=== PATIENT | male | born 1975 | race Caucasian/White ===

== ENCOUNTER 2019-09-18 12:21 | Inpatient (IN) ==
--- NOTE | 2019-09-11 14:08 | Anesthesiology Consultation ---
Date of Service September 11, 2019 Assessment & Plan (1) Encounter for pre-operative examination: Chart Review Chart Review: Acceptable Risk for Surgery and Patient NOT seen in Pre Admission Testing History Surgery Operation Date: 09/18/19 07:15 Proposed Procedures p Left Hand Assisted Laparoscopic Nephrectomy - Willem Parker, Height/Weight Height: 5 ft 11 in Weight: 72.575 kg Allergies Allergy/AdvReac Type Severity Reaction Status Date / Time No Known Allergies Allergy Verified 08/29/19 08:54 Medications Home Medications Medication Instructions Recorded Confirmed Last Taken tenofovir alafenamide 25 mg tablet 25 mg PO DAILY 08/28/19 08/29/19 Unknown Past Medical History Medical History (Updated 09/11/19 @ 14:06 by Marcelle Turcios) GERD (gastroesophageal reflux disease) Hepatitis hx hepatitis c per records Left renal mass Past Family History Family History (Updated 08/28/19 @ 11:35 by Nini Dey) Father Prostate cancer Past Surgical History Surgical History (Updated 08/28/19 @ 11:35 by Nini Dey) History of mandibular surgery Social History Smoking Status: Current every day smoker Hx Alcohol Use: No Testing Laboratory Results 08/31/19 WBC 7.84 H/H 15.4/45.1 PLATELETS 226 SODIUM 143 POTASSIUM 3.8 CHLORIDE 104 CO2 25 BUN 17 CREATININE 1.01 GLUCOSE 73 URINE CULTURE no growth UA negative Electrocardiogram Date: 08/30/19 Findings: + NSR @ (80) Chest X-Ray Date: 08/30/19 Findings: + NAD
[~2019-09-18 12:21] MED LIST: CEFAZOLIN 2000MG 2,000 MG/15 ML SYR IV SCH; LR 15ML/HR IV SCH
[2019-09-18] MEDS ORDERED: ONDANSETRON INJ 2 MG/ML 2 ML VIAL ONE (12:27)
[2019-09-18] MEDS ORDERED: PROPOFOL IV EMULSION 10 MG/ML 20 ML VIAL IV ONE (12:27)
[2019-09-18] MEDS ORDERED: DEXAMETHASONE SOD INJ 4 MG/ML VIAL ONE (12:27)
[2019-09-18] MEDS ORDERED: LIDOCAINE HCL 2% 2 ML VIAL/AMP(20MG/ML) INFIL ONE (12:27)
[2019-09-18] MEDS ORDERED: fentaNYL citrate 100 MCG/2 ML VIAL ONE ×2 (12:27→16:57)
[2019-09-18] MEDS ORDERED: MIDAZOLAM HCL 1 MG/ML 2ML VIAL ONE (12:27)
[2019-09-18] MEDS ORDERED: ROCURONIUM BROMIDE 10 MG/ML 5 ML VIAL ONE (12:30)
[2019-09-18] MEDS ORDERED: BUPIVACAINE 0.5 % 5 MG/1 ML MPF 30ML VIAL ONE (12:50)
--- NOTE | 2019-09-18 13:04 | History & Physical Bridge Note ---
Date of Service September 18, 2019 History & Physical Bridge Note I have examined the patient, reviewed the History & Physical and in the interval since the performance of the History & Physical I have noted the following changes of clinical significance: no changes noted
--- NOTE | 2019-09-18 13:56 | Operative Report ---
PG Post Operative Report Pre & Post Diagnosis Left Renal Mass Same Operation Date: 09/18/19 14:00 <No data on this case meets the specified criteria> I identified the patient and participated in the time-out.: Yes Procedure Laparoscopic Hand Assisted Radical Nephrectomy with lysis of adhesions > 20 minutes Operation Date: 09/18/19 14:00 <No data on this case meets the specified criteria> Surgeon Willem Parker, II, DO Accounts Adjustable Clerk Bren Estimated Blood Loss 50 Findings Consistent with Post-Op Diagnosis Solid renal mass suspicious for malignancy. Significant adhesions with extensive lysis of adhesions greater than 20 minutes. Specimens Radical Kidney Pelvic Lymph Node Left. Drains Owens catheter. Anesthesia Type General Complications none Disposition Disposition: Recovery Room Indications Patient with enhancing left renal mass. Risk and benefits were discussed at length. Patient elected to undergo hand assisted laparoscopic nephrectomy. Description of Procedure The patient was brought to the operative suite and placed under general endotracheal intubation anesthesia in the supine position. The patient was transferred to right side propped with support. The patient was placed into a flex'ed position and then placed into mild reverse Trendelenberg. At this point, the patient prepped and draped in the usual sterile fashion and a timeout was completed. Preoperative antibiotics of Ancef 2 gm had been given. FLORENCE's and SCD's were placed on the patient's lower extremities. A catheter was exchanged using sterile technique. With the time out completed the patient was flexed and the skin was marked. The left lower quadrant was marked lateral to the rectus shealth. The area was anesthetized and an incision was made to the fascial layer. The lateral edge of the rectus sheath was opened and the rectus muscles retracted medially. The posterior sheath/peritoneum was then entered. This was manually probed and no major adhesions or areas of concern were noted. The fascia was further opened and the hand assist gel port was placed. The midline and lateral camera/working port sites were assessed. The port site was anesthetized. A small incision was made into the skin and subcutaneous tissues. A 12 mm camera port was placed. The cavity was insufflated to 15mmHG. A laparoscopic camera was placed and the abdominal cavity inspected. No concerning features were noted. The second 12 mm port was then placed in a similar fashion. LUIGI Correia was integral in port placement, camera utilization, and first assisting for the entire remainder of the procedure. She remained in sterile attire and then proceeded to assist the remainder of the case. The kidney mass was notably displacing the liver and severe adhesions were noted throughout the abdomen and especially the sigmoid colon along the left pelvic wall. On assessment, it was somewhat fixed laterally and superiorly. At this point, the white line of Toldt was assessed and opened. The laparoscopic harmonic device and blunt dissection was utilized. The colon was mobilized medially to expose the retroperitoneum and the area assessed. Adhesions were freed to allow mobilization. A severe amount of adhesions were noted from the colon and were freed. Extensive lysis of adhesions were completed. These were dissected with blunt technique. Cautery was used to assist dissection and control bleeding. The retroperitoneal fat was assessed. The ureter and gonadal vein were identified. The ureter was isolated and dissection was taken superiorly. This was followed to the renal pelvis. There was a notable amount of adhesion in the pelvis. These adhesions were dissected and freed. Multiple attempts were made to palpate an enlarged node in the pelvis along the iliac vessels. At no point was an enlarged node palpated. Due to the severity of adhesions, it was decided to not attempt dissection without the ability to palpate a node. The Renal Artery and Vein were then cleaned and exposed. They were individually isolated. The Gonadal vein was found to be directly anterior to the renal artery and due to inflammation proved difficult to dissect away. Due to this, it was clamped and transected. The Endo FLAVIO stapler with a vascular load was selected. This was placed across the renal artery. The stapler was engaged and the artery transected after isolating the artery. The stump was assessed and no major bleeding was noted. The stapler was then placed across the renal vein and this was stapled and transected. The kidney and surrounding area was inspected. No major bleeding or areas of concern. The perinephric tissues posterior, lateral, superior, and inferior were then freed. Significant adhesions were noted laterally and superiorly. The Adrenal gland appeared to be uninvolved in the dissection. No obvious tumor invasion into the spleen was appreciated, however thick adherent tissue was noted between the bulk of the mass and the inferior portion of the spleen and abdominal wall laterally. This dissection was completed bluntly and with the harmonic device. Due to the size of the mass, superiorly the dissection was a slow process. Once fully freed and all accessory vessels and surrounding tissues fulgurated and sealed with the harmonic device, the ureter was dissected inferiorly with the surrounding retroperitoneal tissues. A stapler was used just superior to the crossing of the iliac vessels to staple and transect the ureter and retroperitoneal tissues. The specimen was then fully freed. The wound bed was throughly inspected with care to assess the inferior liver. The area was irrigated. No severe or significant bleeding was noted. The vessel stumps were also inspected. No bleeding or other major areas of concern were discovered. A hemostatic agent was placed under the spleen along the resection bed and on the vessel stumps. This Hemostatic agent was also placed on the vessel stumps. No major bleeding or other issues. The entire dissection space was inspected one final time. No bleeding or injuries or areas of concern were noted. No tumor or other concerning features were noted. At this point, The port sites were all assessed laparoscopically. The port sites were closed with the Osito Hayes device and a 1-0 Vicryl suture. The gel port was removed and the lower quadarant stark-like incision was assessed. The specimen had been removed through the gel port, Once this was removed, it was sent for pathologic analysis. The wound bed was inspected a final time without any major bleeding. Counts were completed and correct x 2. The posterior fascial sheath/peritoneum was closed with a running 1-0 Vicryl suture. A running PDS suture was used to close anterior rectus sheath fascia. The subcutaneous tissues were closed with a running 2-0 Vicryl sture. The skin at each port site and along the lower quadrant incision site was closed with surgical juan pablo. The area was cleaned. The patient was cleaned and bandaged in the lower quadrant. He was moved back into the supine position The patient was further cleaned, aroused from anesthesia, and transferred to the pacu in stable condition having tolerated the procedure well with no complications. Counts were correct x 2 and no issues or complications were appreciated. I was present and participated in all aspects of the procedure. LUIGI Riley was critical in the portions as mentioned above. She was also involved with the closure process including fascial closure. I attest to the content of the Intraoperative Record and any orders documented therein. Any exceptions are noted below.
[2019-09-18] MEDS ORDERED: GLYCOPYRROLATE 0.2 MG/ML VIAL ONE (14:21)
[2019-09-18] MEDS ORDERED: NEOSTIGMINE METHYLSULFATE 5 MG/5 ML SYR ONE (14:21)
[2019-09-18] MEDS ORDERED: PHENYLEPHRINE 100MCG/ML 5ML SYR ONE (14:21)
[2019-09-18] MEDS ORDERED: HYDROmorphone INJ 2 MG/ML SYR/VIAL ONE (14:51)
--- NOTE | 2019-09-18 17:13 | Anesthesiology Progress Note ---
Date of Service September 18, 2019 Anesthesia Post Procedure Vital Signs Vital Signs: Temp Pulse Resp BP Pulse Ox 09/18/19 12:40 36.9 C 80 18 133/75 97 Pain Intensity Right Hip: Pain Intensity: 6 Transfer of Care Handoff Completed per policy Notes Mental Status: alert / awake / arousable and participated in evaluation Patient Amnestic to Procedure: Yes Nausea / Vomiting: adequately controlled Pain: adequately controlled Airway Patency, RR, SpO2: stable & adequate BP & HR: stable & adequate Hydration State: stable & adequate Anesthetic Complications: no major complications apparent and Pt Satisfied with anesthetic care
[2019-09-18] MEDS ORDERED: HYDROmorphone INJ 0.5 MG/0.5 ML SYR ONE (17:17)
[2019-09-18] MEDS ORDERED: HYDROmorphone INJ 2 MG/ML SYR/VIAL IV PRN (17:17)
[2019-09-18 17:22] LABS: Basophils # (auto) 0.03 K/uL (0-0.2); Basophils % (auto) 0.2 %; Eosinophils # (auto) 0.04 K/uL (0-0.5); Eosinophils % (auto) 0.3 %; Hemoglobin 14.8 g/dL (14.0-18.0); Immature Granulocytes # (auto) 0.03 K/uL (0.00-0.02); Immature Granulocytes % (auto) 0.2 %; Lymphocytes # (auto) 0.84 K/uL (1.2-3.4); Lymphocytes % (auto) 6.4 %; Mean Corpuscular Hemoglobin 30.9 pg (25-34); Mean Corpuscular Volume 85.6 fL (80-100); Mean Platelet Volume 9.4 fL (7.4-10.4); Monocytes # (auto) 0.23 K/uL (0.11-0.59); Monocytes % (auto) 1.7 %; Neutrophils # (auto) 11.99 K/uL (1.4-6.5); Neutrophils % (auto) 91.2 %; Platelet Count 188 K/uL (130-400); RDW Coefficient of Variation 12.6 % (11.5-14.5); RDW Standard Deviation 39.6 fL (36.4-46.3); Red Blood Count 4.79 M/uL (4.7-6.1); White Blood Count 13.16 K/uL (4.8-10.8)
[2019-09-18 17:24] LABS: Mean Corpuscular Hgb Conc 36.1 g/dL (32-36)
[2019-09-18 17:39] LABS: BUN Creatinine Ratio 14.7 (10-20); Calcium 8.2 mg/dl (8.5-10.1); Creatinine Clr Calc Pharmacy 94.6 ml/min; Est GFR (Non-African American) 86.3; Potassium 3.9 mmol/L (3.5-5.1)
[2019-09-18] MEDS ORDERED: MoRPHine SULFATE 2 MG/ML CARP IV PRN (17:51)
[2019-09-18] MEDS ORDERED: OXYCODONE HCL IR 5 MG TAB (IMMEDIATE RELEASE) PO PRN (17:51)
[2019-09-18] MEDS ORDERED: ONDANSETRON INJ 2 MG/ML 2 ML VIAL IV PRN (17:51)
[2019-09-18] MEDS: ACETAMINOPHEN 1,000 MG/100 ML VIAL IV SCH (18:20)
[2019-09-18] MEDS: MoRPHine SULFATE 4 MG/ML 1 ML CARP\\VIAL IV PRN (19:24)
[2019-09-18] MEDS: LACTATED RINGER'S 1,000 ML IV SCH (20:37)
[2019-09-18] MEDS: CEFAZOLIN 2000MG 2,000 MG/15 ML SYR IV SCH (21:58)
[2019-09-18] MEDS: OXYCODONE HCL IR 5 MG TAB (IMMEDIATE RELEASE) PO PRN (22:06)
[2019-09-19] MEDS: MoRPHine SULFATE 4 MG/ML 1 ML CARP\\VIAL IV PRN (02:28)
[2019-09-19] MEDS: LACTATED RINGER'S 1,000 ML IV SCH ×3 (03:30→17:43)
[2019-09-19] MEDS: ACETAMINOPHEN 1,000 MG/100 ML VIAL IV SCH ×3 (06:13→21:35)
[2019-09-19] MEDS: CEFAZOLIN 2000MG 2,000 MG/15 ML SYR IV SCH (06:13)
[2019-09-19 07:24] LABS: Basophils # (auto) 0.07 K/uL (0-0.2); Basophils % (auto) 0.6 %; Eosinophils # (auto) 0.01 K/uL (0-0.5); Eosinophils % (auto) 0.1 %; Hematocrit (blood only) 37.4 % (42-52); Hemoglobin 13.4 g/dL (14.0-18.0); Immature Granulocytes # (auto) 0.03 K/uL (0.00-0.02); Immature Granulocytes % (auto) 0.3 %; Lymphocytes # (auto) 1.19 K/uL (1.2-3.4); Mean Corpuscular Hemoglobin 30.5 pg (25-34); Mean Corpuscular Hgb Conc 35.8 g/dL (32-36); Mean Corpuscular Volume 85.2 fL (80-100); Mean Platelet Volume 9.7 fL (7.4-10.4); Monocytes # (auto) 1.01 K/uL (0.11-0.59); Monocytes % (auto) 8.5 %; Neutrophils # (auto) 9.63 K/uL (1.4-6.5); Neutrophils % (auto) 80.5 %; Platelet Count 183 K/uL (130-400); RDW Coefficient of Variation 12.7 % (11.5-14.5); Red Blood Count 4.39 M/uL (4.7-6.1); White Blood Count 11.94 K/uL (4.8-10.8)
[2019-09-19 07:54] LABS: BUN Creatinine Ratio 12.4 (10-20); Calcium 8.3 mg/dl (8.5-10.1); Creatinine Clr Calc Pharmacy 68.8 ml/min; Est GFR (African American) 68.1; Est GFR (Non-African American) 58.7
[2019-09-19] MEDS: HEPARIN SOD 5,000 UNIT/0.5 ML VIAL SQ SCH ×2 (07:57→20:18)
[2019-09-19] MEDS: OXYCODONE HCL IR 5 MG TAB (IMMEDIATE RELEASE) PO PRN ×3 (11:45→20:22)
--- NOTE | 2019-09-19 15:26 | Urology Progress Note ---
Date of Service September 19, 2019 Assessment & Plan (1) Renal mass: POD 1 s/p Hand Asst Radical Left Nephrectomy. Patent pain over midline. Tolerated and controlled. Ambulating. No severe issues. No major changes. Catheter draining well. NO other major changes. Tolerated diet. Will remove catheter today. Will monitor. If doing well, will plan on discharge. Mild LESLIE with decrease in renal function expected after radical nephrectomy secondary to loss of kidney. Continue hydration. Subjective Postop from urologic surgery. Patient has been tolerating well, but is having some pain and discomfort. Incisions have been mild sore. Having some abdominal distension/gas pains. Has tolerated catheter. Has not had severe pain or uncontrollable pain. Patient has been ambulating. Has not had bowel movement or major change. No new nausea or vomiting. Had tolerated anesthesia without major problems Tolerated liquid diet postoperatively. Review of Systems Review of Systems: All systems reviewed & are unremarkable except as noted in HPI & below Physical Exam Physical Exam: General: Alert in no acute distress. HEENT: Normocephalic Atraumatic. Inspection normal. Cranial Nerves 2-12 Grossly intact. Normal inspection of face. Normal inspection of neck. Psychologic: Normal affect. Respiratory: Nonlabored. No use of accessory muscles. No tachypnea or dyspnea. Cardiovascular: No tachycardia Skin: [place] and Dry. No rashes or visible lesions. Extremities/Lymphatics: No edema Abdomen: Appropriately tender. Mild distended. No rebound or guarding. Wound: Clean, dry, covered. Results & Data Vital Signs (Past 12 Hours) Vital Signs Temp Pulse Pulse Resp BP Pulse Ox 09/19/19 07:26 36.8 C 73 16 102/63 95 09/19/19 03:59 36.9 C 80 16 107/63 96 PG Care Time/CCT Total # of Minutes Spent Total Time Spent with Patient: Total time spent is greater than 50% in coordination of care (as documented) at patient's floor/unit and/or counseling patient: Coding Level of Care Code 30846 Subseq Hosp Care Lvl 3 Diagnoses Renal mass N28.89
[2019-09-20] MEDS: OXYCODONE HCL IR 5 MG TAB (IMMEDIATE RELEASE) PO PRN ×4 (01:16→18:20)
[2019-09-20] MEDS: LACTATED RINGER'S 1,000 ML IV SCH ×3 (03:10→22:46)
[2019-09-20] MEDS: ACETAMINOPHEN 1,000 MG/100 ML VIAL IV SCH ×3 (05:47→22:10)
[2019-09-20 06:05] LABS: Basophils # (auto) 0.28 K/uL (0-0.2); Basophils % (auto) 3.4 %; Eosinophils # (auto) 0.11 K/uL (0-0.5); Eosinophils % (auto) 1.3 %; Hematocrit (blood only) 38.2 % (42-52); Hemoglobin 13.5 g/dL (14.0-18.0); Immature Granulocytes # (auto) 0.01 K/uL (0.00-0.02); Immature Granulocytes % (auto) 0.1 %; Lymphocytes # (auto) 2.35 K/uL (1.2-3.4); Lymphocytes % (auto) 28.6 %; Mean Corpuscular Hemoglobin 31.3 pg (25-34); Mean Corpuscular Hgb Conc 35.3 g/dL (32-36); Mean Corpuscular Volume 88.4 fL (80-100); Mean Platelet Volume 9.5 fL (7.4-10.4); Monocytes # (auto) 0.69 K/uL (0.11-0.59); Monocytes % (auto) 8.4 %; Neutrophils # (auto) 4.77 K/uL (1.4-6.5); Neutrophils % (auto) 58.2 %; Platelet Count 161 K/uL (130-400); RDW Standard Deviation 42.4 fL (36.4-46.3); Red Blood Count 4.32 M/uL (4.7-6.1); White Blood Count 8.21 K/uL (4.8-10.8)
[2019-09-20 06:35] LABS: BUN Creatinine Ratio 10.3 (10-20); Calcium 8.7 mg/dl (8.5-10.1); Creatinine Clr Calc Pharmacy 69.8 ml/min; Est GFR (African American) 69.2; Est GFR (Non-African American) 59.7; Potassium 3.9 mmol/L (3.5-5.1)
[2019-09-20] MEDS: HEPARIN SOD 5,000 UNIT/0.5 ML VIAL SQ SCH ×2 (09:37→21:19)
--- NOTE | 2019-09-20 13:13 | Urology Progress Note ---
Date of Service September 20, 2019 Assessment & Plan (1) Renal mass: POD 2 s/p Hand Asst Radical Left Nephrectomy. Patent pain over midline. Tolerated and controlled. Ambulating but limited due to baseline ambulatory issues. Patient does require crutches/walker at present facility has noted increased difficulty secondary to discomfort coming from left groin after hand-assisted nephrectomy.. No severe issues. No major changes. Catheter draining well. NO other major changes. Tolerated diet. Patient has tolerated catheter removal. Is voiding on his own without major issues or concerns Mild LESLIE with decrease in renal function expected after radical nephrectomy secondary to loss of kidney. Continue hydration. We will plan to increase diet. Due to ambulation issues will set up referral for physical therapy. Goal to be evaluated for different mobility assistance devices. Subjective Postop from urologic surgery. Patient has been tolerating well, but is having some pain and discomfort. Incisions have been mild sore. Having some abdominal distension/gas pains. Has tolerated catheter. Has not had severe pain or uncontrollable pain. Patient has been ambulating. Patient has some ambulatory issues at baseline and does walk with crutches and a walker in the present facility. Is having worsening issues with mobilization secondary to discomfort due to recent abdominal surgery Has not had bowel movement or major change. No new nausea or vomiting. Had tolerated anesthesia without major problems Tolerated liquid diet postoperatively. Review of Systems Review of Systems: All systems reviewed & are unremarkable except as noted in HPI & below Physical Exam Physical Exam: General: Alert in no acute distress. HEENT: Normocephalic Atraumatic. Inspection normal. Cranial Nerves 2-12 Grossly intact. Normal inspection of face. Normal inspection of neck. Psychologic: Normal affect. Respiratory: Nonlabored. No use of accessory muscles. No tachypnea or dyspnea. Cardiovascular: No tachycardia Skin: [place] and Dry. No rashes or visible lesions. Extremities/Lymphatics: No edema Abdomen: Appropriately tender. Mild distended. No rebound or guarding. Wound: Clean, dry, covered. Results & Data Vital Signs (Past 12 Hours) Vital Signs Temp Resp BP Pulse Ox 09/20/19 07:35 36.8 C 16 109/68 95 PG Care Time/CCT Total # of Minutes Spent Total Time Spent with Patient: Total time spent is greater than 50% in coordination of care (as documented) at patient's floor/unit and/or counseling patient: Coding Level of Care Code 64341 Subseq Hosp Care Lvl 3 Diagnoses Renal mass N28.89
[2019-09-20] MEDS: MoRPHine SULFATE 4 MG/ML 1 ML CARP\\VIAL IV PRN (21:21)
[2019-09-20] MEDS: SIMETHICONE 80 MG CHEW PO PRN (22:09)
[2019-09-20] MEDS: CALCIUM CARBONATE 500 MG CHEWABLE TAB PO PRN (23:20)
[2019-09-21] MEDS: OXYCODONE HCL IR 5 MG TAB (IMMEDIATE RELEASE) PO PRN ×5 (00:53→18:13)
[2019-09-21] MEDS: ACETAMINOPHEN 1,000 MG/100 ML VIAL IV SCH ×2 (05:55→13:42)
[2019-09-21] MEDS: SIMETHICONE 80 MG CHEW PO PRN ×3 (05:55→22:37)
[2019-09-21 06:55] LABS: Basophils % (auto) 3.1 %; Eosinophils # (auto) 0.21 K/uL (0-0.5); Eosinophils % (auto) 3.2 %; Hematocrit (blood only) 38.4 % (42-52); Hemoglobin 13.3 g/dL (14.0-18.0); Immature Granulocytes # (auto) 0.02 K/uL (0.00-0.02); Immature Granulocytes % (auto) 0.3 %; Lymphocytes # (auto) 1.75 K/uL (1.2-3.4); Mean Corpuscular Hemoglobin 30.3 pg (25-34); Mean Corpuscular Hgb Conc 34.6 g/dL (32-36); Mean Corpuscular Volume 87.5 fL (80-100); Mean Platelet Volume 9.5 fL (7.4-10.4); Monocytes # (auto) 0.46 K/uL (0.11-0.59); Monocytes % (auto) 7.1 %; Neutrophils # (auto) 3.83 K/uL (1.4-6.5); Neutrophils % (auto) 59.3 %; Platelet Count 171 K/uL (130-400); RDW Coefficient of Variation 12.6 % (11.5-14.5); RDW Standard Deviation 40.7 fL (36.4-46.3); Red Blood Count 4.39 M/uL (4.7-6.1); White Blood Count 6.47 K/uL (4.8-10.8)
[2019-09-21 07:22] LABS: BUN Creatinine Ratio 10.8 (10-20); Calcium 9.3 mg/dl (8.5-10.1); Est GFR (African American) 65.8; Est GFR (Non-African American) 56.8; Potassium 3.8 mmol/L (3.5-5.1)
[2019-09-21] MEDS: HEPARIN SOD 5,000 UNIT/0.5 ML VIAL SQ SCH ×2 (08:15→21:39)
[2019-09-21] MEDS: CALCIUM CARBONATE 500 MG CHEWABLE TAB PO PRN ×2 (08:16→17:07)
[2019-09-21] MEDS: LACTATED RINGER'S 1,000 ML IV SCH ×2 (08:17→17:59)
--- NOTE | 2019-09-21 11:39 | Urology Progress Note ---
Date of Service September 21, 2019 Assessment & Plan (1) Renal mass: POD 3 s/p Hand Asst Radical Left Nephrectomy. Patent pain over midline. Tolerated and controlled. Ambulating but limited due to baseline ambulatory issues. Patient does require crutches/walker at present facility has noted increased difficulty secondary to discomfort coming from left groin after hand-assisted nephrectomy.. No severe issues. No major changes. Catheter draining well. NO other major changes. Tolerated diet. Mild LESLIE with decrease in renal function expected after radical nephrectomy secondary to loss of kidney. Continue hydration. We will plan to increase diet. PT has evaluated and will order for walker to assist ambulation at . Subjective Postop from urologic surgery. Patient has been tolerating well, but is having some pain and discomfort. Incisions have been mild sore. Having some abdominal distension/gas pains. Has tolerated catheter. Has not had severe pain or uncontrollable pain. Patient has been ambulating. Patient was evaled by PT due to some ambulatory issues at baseline and does walk with crutches and a walker in the present facility. Has been having issues with mobilization secondary to discomfort due to recent abdominal surgery Has not had bowel movement or major change. No new nausea or vomiting. Had tolerated anesthesia without major problems Tolerated advancing diet postoperatively. Review of Systems Review of Systems: All systems reviewed & are unremarkable except as noted in HPI & below Physical Exam Physical Exam: General: Alert in no acute distress. HEENT: Normocephalic Atraumatic. Inspection normal. Cranial Nerves 2-12 Grossly intact. Normal inspection of face. Normal inspection of neck. Psychologic: Normal affect. Respiratory: Nonlabored. No use of accessory muscles. No tachypnea or dyspnea. Cardiovascular: No tachycardia Skin: [place] and Dry. No rashes or visible lesions. Extremities/Lymphatics: No edema Abdomen: Appropriately tender. Mild distended. No rebound or guarding. Wound: Clean, dry, intacted with juan pablo. . Results & Data Vital Signs (Past 12 Hours) Vital Signs Temp Pulse Resp BP Pulse Ox 09/21/19 07:45 36.6 C 71 16 120/69 97 PG Care Time/CCT Total # of Minutes Spent Total Time Spent with Patient: Total time spent is greater than 50% in coordination of care (as documented) at patient's floor/unit and/or counseling patient: Coding Level of Care Code 26314 Subseq Hosp Care Lvl 3 Diagnoses Renal mass N28.89
[2019-09-21] MEDS: MoRPHine SULFATE 4 MG/ML 1 ML CARP\\VIAL IV PRN (22:17)
[2019-09-22] MEDS: OXYCODONE HCL IR 5 MG TAB (IMMEDIATE RELEASE) PO PRN ×2 (02:30→11:55)
[2019-09-22] MEDS: LACTATED RINGER'S 1,000 ML IV SCH (03:48)
[2019-09-22 05:53] LABS: Basophils # (auto) 0.19 K/uL (0-0.2); Basophils % (auto) 3.1 %; Eosinophils # (auto) 0.22 K/uL (0-0.5); Eosinophils % (auto) 3.6 %; Hematocrit (blood only) 37.3 % (42-52); Hemoglobin 13.2 g/dL (14.0-18.0); Immature Granulocytes # (auto) 0.02 K/uL (0.00-0.02); Immature Granulocytes % (auto) 0.3 %; Lymphocytes # (auto) 1.69 K/uL (1.2-3.4); Lymphocytes % (auto) 27.7 %; Mean Corpuscular Hemoglobin 30.6 pg (25-34); Mean Corpuscular Hgb Conc 35.4 g/dL (32-36); Mean Corpuscular Volume 86.5 fL (80-100); Mean Platelet Volume 9.3 fL (7.4-10.4); Monocytes # (auto) 0.48 K/uL (0.11-0.59); Monocytes % (auto) 7.9 %; Neutrophils # (auto) 3.51 K/uL (1.4-6.5); Neutrophils % (auto) 57.4 %; Platelet Count 166 K/uL (130-400); RDW Coefficient of Variation 12.5 % (11.5-14.5); RDW Standard Deviation 40.1 fL (36.4-46.3); Red Blood Count 4.31 M/uL (4.7-6.1); White Blood Count 6.11 K/uL (4.8-10.8)
[2019-09-22] MEDS: MoRPHine SULFATE 4 MG/ML 1 ML CARP\\VIAL IV PRN (06:00)
[2019-09-22] MEDS: CALCIUM CARBONATE 500 MG CHEWABLE TAB PO PRN (06:01)
[2019-09-22 06:20] LABS: BUN Creatinine Ratio 14.1 (10-20); Calcium 9.3 mg/dl (8.5-10.1); Creatinine Clr Calc Pharmacy 62.3 ml/min; Est GFR (African American) 60.3; Est GFR (Non-African American) 52.1; Potassium 4.2 mmol/L (3.5-5.1)
[2019-09-22] MEDS: HEPARIN SOD 5,000 UNIT/0.5 ML VIAL SQ SCH (08:18)
--- NOTE | 2019-09-22 09:14 | Operative Report ---
PG Post Operative Report Pre & Post Diagnosis Operation Date: 09/18/19 14:00 Pre-Op Diagnosis: Left Renal Mass Post-Op Diagnosis: Left Renal Mass I identified the patient and participated in the time-out.: Yes Procedure Operation Date: 09/18/19 14:00 Actual Procedures p Left Hand-Assisted Laparoscopic Nephrectomy(Left) - Willem Parker DO Surgeon Sajan Abdul MD Director Talent Bren Estimated Blood Loss 60 I attest to the content of the Intraoperative Record and any orders documented therein. Any exceptions are noted below.
--- NOTE | 2019-09-22 09:18 | Urology Progress Note ---
Date of Service September 22, 2019 Assessment & Plan (1) Retroperitoneal lymphadenopathy: (2) Renal mass: (3) Renal cell carcinoma of left kidney: A/P 44 yo male POD#4 s/p L HALN for clear cell renal cell carcinoma. Findings reviewed. Appropriate postop Cr, labs stabilized, tolerating regular diet, comfortable on oral meds, activity at baseline due to R hip. Stable for DC to facility with walker to assist with ambulation. Postop limitations reviewed, light activity x 4-6 weeks. Staple removal in 2 weeks' time, f/u with Dr. Parker outpatient as planned. Patient and guards vocalize understanding of therapeutic plan. Present on Admission?: Yes Subjective 44 yo inmate POD#4 s/p L HALN. Past notes and intraop findings reviewed. Patient in room with guards. Ambulatory with walker, + incisional pain, appropriate, + R hip pain, chronic causing disability at facility at baseline. He notes he is tolerating regular diet, comfortable with oral medication. Review of Systems Constitutional: no fever and no chills Eyes: no diplopia Ear, Nose, Mouth, Throat: no ear trauma Respiratory: no hemoptysis Cardiovascular: no chest pain Gastrointestinal: + abdominal pain; no nausea and no vomiting Musculoskeletal: + joint pain Integumentary: no acne and no boil Neurologic: no paralysis Psychiatric: no hopelessness Allergy / Immunological: no tongue swelling Physical Exam Constitutional: well developed and well nourished; no acute distress Eyes: eyes not dysmorphic ENMT: Ears: no external ear abnormality Neck: trachea midline; no anterior neck swelling Respiratory: no respiratory distress and does not use accessory muscles Cardiovascular: Vessels: radial pulses present Gastrointestinal (Abdomen): Inspection/Auscultation: abdomen not distended Percussion/Palpation: abdomen soft; abdomen nontender inc c/d/i with juan pablo Musculoskeletal: Head/Neck/Chest: normocephalic and neck supple Skin: normal turgor Neurologic: awake; not obtunded Psychiatric: Orientation: oriented x 3 Lymphatic: no lymphadenopathy Results & Data Vital Signs (Past 12 Hours) Vital Signs Temp Pulse Resp BP Pulse Ox 09/22/19 07:52 36.8 C 72 18 112/69 96 09/21/19 23:09 36.8 C 79 16 125/76 96 Laboratory Results Laboratory Results - last 48 hr 04/09/21/19 09/22/19 06:24 06:24 05:40 WBC 6.47 6.11 RBC 4.39 L 4.31 L Hgb 13.3 L 13.2 L Hct 38.4 L 37.3 L MCV 87.5 86.5 MCH 30.3 30.6 MCHC 34.6 35.4 RDW Std Deviation 40.7 40.1 RDW Coeff of Angie 12.6 12.5 Plt Count 171 166 MPV 9.5 9.3 Immature Gran % (Auto) 0.3 0.3 Neut % (Auto) 59.3 57.4 Lymph % (Auto) 27.0 27.7 Martin % (Auto) 7.1 7.9 Eos % (Auto) 3.2 3.6 Baso % (Auto) 3.1 3.1 Immature Gran # (Auto) 0.02 0.02 Neut # (Auto) 3.83 3.51 Lymph # (Auto) 1.75 1.69 Martin # (Auto) 0.46 0.48 Eos # (Auto) 0.21 0.22 Baso # (Auto) 0.20 0.19 Sodium 134 L Potassium 3.8 Chloride 102 Carbon Dioxide 33 H Anion Gap -1.0 L BUN 16 Creatinine 1.47 H Est Cr Clr Drug Dosing 67.0 Est GFR ( Amer) 65.8 Est GFR (Non-Af Amer) 56.8 BUN/Creatinine Ratio 10.8 Glucose 88 Calcium 9.3 09/22/19 05:40 WBC RBC Hgb Hct MCV MCH MCHC RDW Std Deviation RDW Coeff of Angie Plt Count MPV Immature Gran % (Auto) Neut % (Auto) Lymph % (Auto) Martin % (Auto) Eos % (Auto) Baso % (Auto) Immature Gran # (Auto) Neut # (Auto) Lymph # (Auto) Martin # (Auto) Eos # (Auto) Baso # (Auto) Sodium 140 Potassium 4.2 Chloride 104 Carbon Dioxide 33 H Anion Gap 3.0 BUN 22 H Creatinine 1.58 H Est Cr Clr Drug Dosing 62.3 Est GFR ( Amer) 60.3 Est GFR (Non-Af Amer) 52.1 BUN/Creatinine Ratio 14.1 Glucose 90 Calcium 9.3 PG Care Time/CCT Total # of Minutes Spent Total Time Spent with Patient: Total time spent is greater than 50% in coordination of care (as documented) at patient's floor/unit and/or counseling patient: Coding Level of Care Code 46284 Subseq Hosp Care Lvl 2 Diagnoses Retroperitoneal lymphadenopathy R59.0 Renal mass N28.89 Renal cell carcinoma of left kidney C64.2
--- NOTE | 2019-09-25 20:43 | Discharge Summary ---
Date of Service September 25, 2019 Admission HPI Per Admitting Provider See H&P Admission Exam Per Admitting Provider See H&P Principal Diagnosis Renal Mass Renal Cell Carcinoma Discharge Exam General: Alert in no acute distress. HEENT: Normocephalic Atraumatic. Inspection normal. Psychologic: Normal affect. Skin: [place] and Dry. No rashes or visible lesions. Abdomen: Soft Non-distended. No rebound or guarding. Discharge Data Allergies Allergy/AdvReac Type Severity Reaction Status Date / Time No Known Allergies Allergy Verified 09/18/19 12:44 Procedures Performed Operation Date: 09/18/19 14:00 Actual Procedures p Left Hand-Assisted Laparoscopic Nephrectomy(Left) - Willem Parker DO Hospital Course (1) Retroperitoneal lymphadenopathy: (2) Renal mass: POD 3 s/p Hand Asst Radical Left Nephrectomy. Patent pain over midline. Tolerated and controlled. Ambulating but limited due to baseline ambulatory issues. Patient does require crutches/walker at present facility has noted increased difficulty secondary to discomfort coming from left groin after hand-assisted nephrectomy.. No severe issues. No major changes. Catheter draining well. NO other major changes. Tolerated diet. Mild LESLIE with decrease in renal function expected after radical nephrectomy secondary to loss of kidney. Continue hydration. We will plan to increase diet. PT has evaluated and will order for walker to assist ambulation at . 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 Findings reviewed. Appropriate postop Cr, labs stabilized, tolerating regular diet, comfortable on oral meds, activity at baseline due to R hip. Stable for DC to facility with walker to assist with ambulation. Postop limitations reviewed, light activity x 4-6 weeks. Staple removal in 2 weeks' time, f/u with Dr. Parker outpatient as planned. Patient and guards vocalize understanding of therapeutic plan. Total Time Total Time Spent Total Time Spent (In Minutes): 10 minutes Total Time Includes: Examination of the Patient, Discharge Planning, Medication Reconciliation and Communication With Other Providers Discharge Plan Discharge Items [facility]position[facility] Reason For Visit: Left Renal Mass Discharge Diagnosis: Same Activity: As commented below Activity Comment: Patient will need rolling walker for safe ambulation Lifting: No more than 50 pounds Bathing: Keep incision dry Bathing Comment: Okay to shower and wash with warm soapy water. Exercise/Sports: Wait until after follow-up appointment Non-emergency contact: Urologist Call non-emergency contact if: you have any medication questions, your symptoms worsen, your pain is not controlled, your pain is worsening, your pain is unusual for you, your pain is concerning for you, you have a fever, your temperature is above 101, your wound has increased redness, your wound has increased drainage and your wound pain has increased Follow-up/Referrals: Damon IBARRA [Primary Care Provider] - Diet: Regular Addtl Attending Provider Instructions: Please take all medications as prescribed and keep follow-ups as scheduled. Ple ase call our office at [phone] with any questions, concerns or need to reschedule appointments for any reason. We are happy to assist you. While catheter is in place, please wash with warm soapy water and a fresh washcloth twice a day with mild bar soap (Dove, Dial, etc.). Your nursing visit appointment to have your catheter removed should already be made, if you have any question regarding this, please call our office. Complete antibiotics as prescribed, if indicated. It is okay to take AZO (available over the counter) as needed for a few days to relieve burning with urination. This may cause your urine or feces to turn an orangish-color. This is expected. The only exception is if you have been prescribed Pyridium (phenazopyridine), this is the same medication and should not take AZO be taken in addition to prescription version. Please do not drive, drink alcohol or operate machinery while taking prescription pain medication. We recommend continuing a stool softener (i.e. Colace) to prevent constipation/straining for at least two weeks after your procedure. Some blood is to be expected in your urine as you heal, you may even see recurrences of blood in your urine for up to 4-6 months after your procedure. Drink plenty of fluids, avoid sexual or strenuous exercise and do not lift >25 pounds until your follow-up. Call [facility] at [phone] promptly if you experience: Fever of 101F or greater Pain thats not controlled with medicine Trouble urinating or inability to urinate Dark, bloody urine for more than 12 hours Pending Studies at Discharge: No Stand-Alone Forms: My [facility] Skilled Items Patient informed of condition?: Yes Discharge Level of Care: Other Communicable Disease: No Discharge Prognosis: Improving Lines: None Urinary Catheter: No Medications and DC Order Prescriptions: New oxycodone-acetaminophen [Percocet] 7.5-325 mg tablet 1 tab PO Q8H PRN (Reason: pain) Qty: 7 RF: 0 docusate sodium [Colace] 100 mg capsule 100 mg PO HS Qty: 30 RF: 0 Continued Vemlidy 25 mg tablet 25 mg PO DAILY RF: 0 Discharge Orders: Discharge Order (Routine); Ordered 09/22/19 Ordered By: Sajan Abdul Admission Data Admit Date/Time: 09/18/19 17:05 Attending Provider: Willem Parker Admit Provider: Willem Parker Primary Care Provider: Damon IBARRA Other Interventions: Discharge Summary Assessment (RN) Last Done: 09/22/19 11:01 DC Date/Time DO NOT enter until pt leaves facility: 09/22/19 14:31 Coding Level of Care Code D/C Day Management <30 mins Diagnoses Retroperitoneal lymphadenopathy R59.0 Renal mass N28.89 Renal cell carcinoma of left kidney C64.2
== END 2019-09-22 14:31 | DRG 688 ==
LOC: ASU 12:21 → 3E 17:05